=== PATIENT | male | born 1985 | race Caucasian/White ===

== ENCOUNTER → 2019-04-29 | Outpatient (REF) | payer OTHER ==
[~2019-04-29] MED LIST: PERCOCET PO
[2019-04-29 22:25] LABS: INFLUENZA A AMPLIFICATION NEGATIVE (NEGATIVE); INFLUENZA B AMPLIFICATION POSITIVE (NEGATIVE)
== END ==
LOC: M LAB REF 15:38
PROVIDERS: ATTEND Physician Assistant
DX: R50.9 Fever, unspecified (principal)

== ENCOUNTER 2023-11-23 06:36 | Emergency (ER) | payer MEDICAID, OTHER ==
[~2023-11-23] VITALS: Ht 177.8 cm; Wt 90.2 kg
[2023-11-23] MEDS: AMOXICILLIN 500 MG CAP PO ONE (08:27)
[2023-11-23] MEDS: IBUPROFEN 600MG TAB PO ONE (08:27)
[2023-11-23] MEDS: dexAMETHasone 4 MG TAB PO ONE (08:27)
[2023-11-23] MEDS ORDERED: AMOX500C PO (08:37)
[2023-11-23 08:56] VITALS: BP 139/84; TEMP 99; O2SAT 99
== END 2023-11-23 09:23 | disposition home or self-care (01) ==
LOC: M ED 06:36
DX: J02.0 Streptococcal pharyngitis (principal); Z88.2 Allergy status to sulfonamides; Z79.2 Long term (current) use of antibiotics

== ENCOUNTER 2024-07-05 05:42 | Emergency (ER) | payer OTHER ==
[~2024-07-05] VITALS: Ht 180.3 cm; Wt 88.8 kg
[~2024-07-05 05:42] MED LIST changes: +AMOX500C PO
[2024-07-05 08:56] VITALS: BP 124/78; TEMP 96.6; O2SAT 100
[2024-07-05] MEDS ORDERED: OSEL75CA PO (09:43)
[2024-07-05] MEDS ORDERED: ONDA-282 PO (09:43)
== END 2024-07-05 10:46 | disposition home or self-care (01) ==
LOC: M ED 05:42
DX: J09.X2 Influenza due to identified novel influenza A virus with other respiratory manifestations (principal); Z88.2 Allergy status to sulfonamides; Z79.899 Other long term (current) drug therapy